=== PATIENT | female | born 1985 | race American Indian/Alaskan Native ===

== ENCOUNTER 2021-06-01 13:42 | Outpatient (CLI) | payer BC, MEDICAID | END 2021-06-01 17:49 | disposition left against medical advice (07) | LOC: LAB 13:42 → APU 17:23 → LAB 17:49 | PROVIDERS: ATTEND Obstetrics & Gynecology | DX: O26.893 Other specified pregnancy related conditions, third trimester (principal); O09.523 Supervision of elderly multigravida, third trimester; Z3A.28 28 weeks gestation of pregnancy; Z67.41 Type O blood, Rh negative | CPT/HCPCS: 86850; 86900; 86901; 96372; J2790 ==